=== PATIENT | male | born 1995 | race Caucasian/White ===

== ENCOUNTER 2018-12-04 03:11 | Emergency (ER) | payer OTHER ==
[~2018-12-04] VITALS: Ht 190.5 cm; Wt 124.3 kg
[2018-12-04 03:19] VITALS: BP 130/81
[2018-12-04 04:43] VITALS: BP 124/86
== END 2018-12-04 04:43 | disposition home or self-care (01) ==
LOC: MED 03:11
DX: F41.9 Anxiety disorder, unspecified (principal); F32.9 Major depressive disorder, single episode, unspecified; Z88.1 Allergy status to other antibiotic agents; Z98.890 Other specified postprocedural states
CPT/HCPCS: 99284

== ENCOUNTER 2018-12-11 23:41 | Emergency (ER) | payer OTHER ==
[~2018-12-11] VITALS: Ht 190.5 cm; Wt 120.9 kg
[2018-12-11 23:48] VITALS: BP 124/82
--- NOTE | 2018-12-11 23:51 | NUR ---
TO LOBBY A/W BED AMBULATORY
--- NOTE | 2018-12-12 00:55 | NUR ---
PATIENT CALLED TO BE ON BED, NO RESPONSE PATIENT LEFT WITHOUT BEING SEEN BY DR. STEVENS. NO FURTHER CARE PROVIDED FOR PATIENT.
--- NOTE | 2018-12-12 00:55 | NUR ---
Gerard aburto in [facility] - 12/12/18 at 0106 by JAY CALLED TWICE IN THE LOBBY AND OUTSIDE NO ANSWER [facility]
--- NOTE | 2018-12-12 01:00 | NUR ---
CALLED FOR THE SECOND TIME NO RESPONSE
--- NOTE | 2018-12-12 01:05 | NUR ---
CALLED FOR THE THIRD TIME , NO RESPONSE
== END 2018-12-12 00:55 | disposition left against medical advice (07) ==
LOC: MED 23:41
DX: F41.9 Anxiety disorder, unspecified (principal); Z88.1 Allergy status to other antibiotic agents; Z53.21 Procedure and treatment not carried out due to patient leaving prior to being seen by health care provider